=== PATIENT | male | born 2000 | race Two or more races ===

== ENCOUNTER 2019-06-15 14:13 | Emergency (ER) | payer SELFPAY ==
[~2019-06-15] VITALS: Ht 172.7 cm; Wt 109.8 kg
[2019-06-15 14:30] VITALS: BP 136/74
--- NOTE | 2019-06-15 14:31 | NUR ---
ED Nurse Note: Pt came in from home due to irritated throat with coughing and running nose x 1 week, no complaint of pain. AOx4, VSS william. Will cont to monitor.
--- NOTE | 2019-06-15 14:36 | Emergency Room Report ---
History of Present Illness General Chief Complaint: Sore Throat Source: Patient Present Illness HPI 19-year-old male presents to the emergency department complaining of itchy/ scratchy throat, productive cough, and runny nose x2 weeks. Denies pain. Patient denies taking any wvsi-klt-jqtqcny medications for symptoms he denies fevers or chills he denies recent travel or ill contacts. Denies , ear pain, high fevers, lethargy, neck pain/stiffness, irritability, photophobia dehydration, N/V/D. Denies Cp, Palpitations, LOC, AMS, seizures, paresthesias, or changes in Hearing or vision, no Sudden severe SAMSON. Denies hx of smoking, asthma or COPD. Allergies: Coded Allergies: SULFA (SULFONAMIDE ANTIBIOTICS) (Verified Allergy, Unknown, 06/15/19) Patient History Past Medical History: see triage record Past Surgical History: none Pertinent Family History: none Reviewed Nursing Documentation: PMH: Agreed; PSxH: Agreed Nursing Documentation-PMH Past Medical History: No Stated History Review of Systems All Other Systems: negative except mentioned in HPI Physical Exam Vital Signs Date Time Temp Pulse Resp B/P (MAP) Pulse Ox O2 Delivery O2 Flow Rate FiO2 06/15/19 14:22 98.2 97 18 136/66 (89) 97 Room Air Sp02 EP Interpretation: reviewed, normal General Appearance: no apparent distress, alert, GCS 15, non-toxic Head: normocephalic, atraumatic Eyes: bilateral eye normal inspection, bilateral eye PERRL ENT: hearing grossly normal, normal pharynx, normal voice, TMs + canals normal , uvula midline, moist mucus membranes, nasal congestion, pharyngeal erythema Neck: full range of motion, no meningismus Respiratory: chest non-tender, lungs clear, normal breath sounds, no respiratory distress, no wheezing, speaking full sentences Cardiovascular #1: regular rate, rhythm Musculoskeletal: back normal, gait/station normal, normal range of motion, non- tender Neurologic: alert, oriented x3, responsive, motor strength/tone normal, sensory intact, speech normal, grossly normal Psychiatric: judgement/insight normal Lymphatic: no adenopathy Medical Decision Making PA Attestation Dr. Oconnell is my supervising Physician whom patient management has been discussed with. Diagnostic Impression: Primary Impression: Acute bronchitis Qualified Codes: J20.9 - Acute bronchitis, unspecified Additional Impressions: Upper respiratory infection, viral PND (post-nasal drip) ER Course 19-year-old male presents to the emergency department complaining of itchy/ scratchy throat, productive cough, and runny nose x2 weeks. Denies pain. Patient denies taking any itsr-rev-dedijme medications for symptoms he denies fevers or chills he denies recent travel or ill contacts. Denies , ear pain, high fevers, lethargy, neck pain/stiffness, irritability, photophobia dehydration, N/V/D. Denies Cp, Palpitations, LOC, AMS, seizures, paresthesias, or changes in Hearing or vision, no Sudden severe SAMSON. Denies hx of smoking, asthma or COPD. Ddx considered but are not limited to URI, pneumonia, PE, strep pharyngitis, meningitis. Vital signs: Pt. is afebrile, the remaining VS are WNL H&PE are most consistent with URI- BRONCHITIS with PND - no meningeal signs, oropharynx is not involved, no evidence of bacterial infection at this time. ORDERS: none required at this time, the diagnosis is clinical ED INTERVENTIONS: None required at this time. --PT. EDUCATION: Discussed antibiotic resistance with inappropriate prescribing of antibiotics for viral illnesses. Discussed signs and symptoms to indicate viral illness versus bacterial illness. DISCHARGE: At this time pt. is stable for d/c to home. Will provide printed patient care instructions, and any necessary prescriptions. Care plan and follow up instructions have been discussed with the patient prior to discharge. Last Vital Signs Date Time Temp Pulse Resp B/P (MAP) Pulse Ox O2 Delivery O2 Flow Rate FiO2 06/15/19 14:30 98.2 84 20 136/74 99 Room Air Disposition: HOME, SELF-CARE Condition: Stable Scripts Acetaminophen* (TYLENOL EXTRA STRENGTH*) 500 Mg Tablet 500 MG ORAL Q6H PRN for Mild Pain/Temp > 100.5, #20 TAB 0 Refills Prov: Fara Schmitt 06/15/19 Guaifenesin (Mucinex) 1,200 Mg Tab.er.12h 1200 MG PO Q12HR for 10 Days, #20 TAB Prov: Fara Schmitt 06/15/19 Codeine/Promethazine Hcl* (PROMETHAZINE-CODEINE SYRUP*) 118 Ml Syrup 5 ML ORAL Q6H PRN for For Cough, #120 ML 0 Refills Prov: Fara Schmitt 06/15/19 Patient Instructions: Acute Bronchitis, [id number]-[id number], Sore Throat Additional Instructions: Take medications as directed. Follow up with a Primary Care Provider in 3-5 days, even if your symptoms have resolved. --Please review list of primary care clinics, if you do not already have a primary care provider Return sooner to ED if new symptoms occur, or current symptoms become worse. Do not drink alcohol, drive, or operate heavy machinery while taking Cough Syrup as this may cause drowsiness. - Please note that this Emergency Department Report was dictated using [employer] medical transcriptionist technology software, occasionally this can lead to erroneous entry secondary to interpretation by the dictation equipment. Fara Schmitt Jun 15, 2019 14:36
[2019-06-15] MEDS ORDERED: PROMETHAZINE-C118 M1 ORAL (14:39)
[2019-06-15] MEDS ORDERED: MUCINEX1200 MG PO (14:39)
[2019-06-15] MEDS ORDERED: TYLENOL EXTRA500 MG ORAL (14:39)
--- NOTE | 2019-06-15 14:44 | NUR ---
ER DISCHARGE NOTE: Patient is cleared to be discharged per ERMD, pt is aox4, on room air, with stable vital signs. pt was given dc and prescription instructions, pt was able to verbalize understanding, pt id band removed. pt is able to ambulate with steady gait. pt took all belongings.
== END 2019-06-15 14:44 | disposition home or self-care (01) ==
LOC: EMR 14:35
DX: J20.9 Acute bronchitis, unspecified (principal); J06.9 Acute upper respiratory infection, unspecified; R09.82 Postnasal drip; Z88.2 Allergy status to sulfonamides
CPT/HCPCS: 99282

== ENCOUNTER 2019-06-22 01:55 | Emergency (ER) | payer SELFPAY ==
[~2019-06-22] VITALS: Ht 172.7 cm; Wt 110.2 kg
[~2019-06-22 01:55] MED LIST: MUCINEX1200 MG PO; PROMETHAZINE-C118 M1 ORAL; TYLENOL EXTRA500 MG ORAL
[2019-06-22 02:09] VITALS: BP 120/80
--- NOTE | 2019-06-22 02:10 | NUR ---
ER Nurse Note: Pt from home c/o painful cough for 10 days with clear phlegm. Pt stated he was on cough meds and antibiotics that were prescribed; effective but came cough returned. No fever at triage, O2 sat >92% RA. [facility]
[2019-06-22] MEDS ORDERED: ZITHROMAX250 MG ORAL (02:11)
--- NOTE | 2019-06-22 02:11 | Emergency Room Report ---
History of Present Illness General Chief Complaint: To Be Triaged Source: Patient, Medical Record Present Illness HPI This is a 19-year-old male with no past medical history. He resents with chief complaint of a cough. This been ongoing for 10 days now. Cough is productive of phlegm. He was here last week and prescribed cough medicine. Not getting better. He is here with his dad who had a fever and a pneumonia on the chest x- ray. Denies any other complaint. He himself has no fever. Allergies: Coded Allergies: SULFA (SULFONAMIDE ANTIBIOTICS) (Verified Allergy, Unknown, 06/15/19) Patient History Past Medical History: none, see triage record, old chart reviewed Past Surgical History: none Pertinent Family History: none Social History: Denies: smoking Immunizations: other Reviewed Nursing Documentation: PMH: Agreed; PSxH: Agreed Review of Systems Eye: Denies: eye pain, blurred vision ENT: Denies: ear pain, nose congestion, throat swelling Respiratory: Reports: cough; Denies: shortness of breath Cardiovascular: Denies: chest pain, palpitations Gastrointestinal: Denies: abdominal pain, diarrhea, nausea, vomiting Musculoskeletal: Denies: back pain, joint pain Skin: Denies: rash Neurological: Denies: headache, numbness Endocrine: Denies: increased thirst, increased urine Hematologic/Lymphatic: Denies: easy bruising All Other Systems: negative except mentioned in HPI Physical Exam vitals unremarkable Sp02 EP Interpretation: reviewed, normal General Appearance: well appearing, no apparent distress, alert Head: normocephalic, atraumatic Eyes: bilateral eye PERRL, bilateral eye EOMI ENT: hearing grossly normal, normal pharynx Neck: full range of motion, supple, no meningismus Respiratory: chest non-tender, lungs clear, normal breath sounds Cardiovascular #1: regular rate, rhythm, no murmur Gastrointestinal: normal bowel sounds, non tender, no mass, no organomegaly, no bruit, non-distended Musculoskeletal: back normal, gait/station normal, normal range of motion Psychiatric: mood/affect normal Medical Decision Making Diagnostic Impression: Primary Impression: Atypical pneumonia ER Course Patient presents with a cough has been ongoing for 10 days. Since dad has pneumonia, will treat for atypical pneumonia with antibiotics. No evidence of any sepsis, ACS, PE to name a few. Status: unchanged Disposition: HOME, SELF-CARE Condition: Stable Scripts Azithromycin* (ZITHROMAX*) 250 Mg Tablet 250 MG ORAL DAILY, #6 TAB 0 Refills Take two tables once daily for 1 day, then one tablet once daily for 4 days. Prov: Yovani Marie MD 06/22/19 Additional Instructions: Follow-up with your doctor in 7 days. Return if symptoms worsen. Yovani Marie MD Jun 22, 2019 02:11
[2019-06-22 02:16] VITALS: BP 120/80
--- NOTE | 2019-06-22 02:16 | NUR ---
ER Nurse Note: Pt seen, treated, medically cleared for discharge by ERMD. Discharge instuctions and prescriptions given with repeat verbalization by pt. Emphasized to follow up with primay care provider; take whole course of medication. Explained each medication. All orders completed per ERMD orders. Pt a&ox4, VSS, no signs of distress. ID band removed. All questions answered per pt's questions. Pt left with all belongings, left with own transportation.
== END 2019-06-22 02:16 | disposition home or self-care (01) ==
LOC: EMR 02:09
DX: J18.9 Pneumonia, unspecified organism (principal); Z88.2 Allergy status to sulfonamides
CPT/HCPCS: 99282